=== PATIENT | female | born 1955 | race Caucasian/White ===

== ENCOUNTER 2016-07-14 13:04 | Day surgery (SDC) | payer OTHER ==
[2016-07-14 15:20] VITALS: BP 139/65; PULSE 62; RESP 18
[2016-07-14] MEDS ORDERED: glipizide (15:32)
[2016-07-14] MEDS ORDERED: omeprazole (15:32)
[2016-07-14] MEDS ORDERED: amlodipine (15:32)
[2016-07-14] MEDS ORDERED: metformin (15:32)
[2016-07-14] MEDS ORDERED: baclofen (15:32)
[2016-07-14] MEDS ORDERED: gabapentin (15:32)
[2016-07-14] MEDS ORDERED: LIDOCAINE 4% SOLUTION 50 ML BTL ONE (15:35)
[2016-07-14] MEDS ORDERED: FENTAnyl 50 MCG/ML VIAL ONE (15:54)
[2016-07-14] MEDS ORDERED: MIDAZOLAM 1 MG/ML 2 ML INJ ONE (15:54)
[2016-07-14 16:16] VITALS: BP 122/64; PULSE 62; RESP 18
--- NOTE | 2016-07-15 02:08 | GILP ---
DATE OF PROCEDURE: PREOPERATIVE DIAGNOSES: 1. Epigastric pain. 2. Nausea. 3. History of Helicobacter pylori. PROCEDURE DONE: Esophagogastroduodenoscopy and biopsy, random biopsy of the stomach. POSTOPERATIVE DIAGNOSIS: Mild gastritis, otherwise normal. DESCRIPTION OF PROCEDURE: The patient was put in left lateral decubitus after obtaining informed co nsent. Posterior pharynx anesthetized with 4% Xylocaine, 2 mg IV Versed given, 50 mcg of fentanyl g iven. Very carefully advanced Olympus video upper endoscope into the esophagus, stomach, and duoden um up to third part. Examination thoroughly done demonstrated mild gastritis. Random biopsy done f or H. pylori. Fundus, body, and antrum unremarkable. The GE junction was thoroughly examined. The re were no erosions. The esophagus in its entire length was unremarkable. Upon removal of scope, p atient had no complication. Plan will be to await for biopsy report, follow up as outpatient. If H . pylori present positive, we will treat the patient. Dictated By: NATALIE GARAY/DIANELYS Conf#: [id number] DID#: [id number] CC: Dr. Moncada; NATALIE SÁNCHEZ M.D.;*EndCC*
== END 2016-07-14 16:24 | disposition home or self-care (01) ==
LOC: GIL 13:04
PROVIDERS: ATTEND Internal Medicine
DX: K29.70 Gastritis, unspecified, without bleeding (principal); I10 Essential (primary) hypertension; E11.9 Type 2 diabetes mellitus without complications; E78.5 Hyperlipidemia, unspecified
CPT/HCPCS: 43239; 88305; 88312; J2250; J3010; Z7610

== ENCOUNTER 2016-10-24 11:51 | Day surgery (SDC) | END 2016-10-24 18:23 | disposition home or self-care (01) | DX: Z80.0 Family history of malignant neoplasm of digestive organs (principal); K63.9 Disease of intestine, unspecified; E11.9 Type 2 diabetes mellitus without complications; I10 Essential (primary) hypertension; E78.5 Hyperlipidemia, unspecified | CPT/HCPCS: 45378; 82962; J2250; J3010 ==